=== PATIENT | female | born 1985 | race Caucasian/White ===

== ENCOUNTER 2025-09-29 19:53 | Emergency (ER) | payer MEDICAID ==
[2025-09-29 20:16] VITALS: BP 128/87; PULSE 76
[2025-09-29] MEDS: Tetracaine HCl/PF 0.5% 4 ML Bottle EYEBOTH ONE (20:19)
== END 2025-09-29 20:35 | disposition home or self-care (01) ==
LOC: VM.ED 19:53
DX: H10.13 Acute atopic conjunctivitis, bilateral (principal)
CPT/HCPCS: 99283; J3490